=== PATIENT | female | born 1990 | race Hispanic/Latino ===

== ENCOUNTER → 2017-12-25 | Day surgery (SDC) | payer OTHER ==
[~2017-12-25] MED LIST: ALPRAZOLAM1 MG PO; BENTYL10 MG PO; DEXILANT60 MG PO; DOMPERIDONE PO; FENTANYL CITRATE/PF 100MCG/2 ML INJ ONE; LIDOCAINE HCL 2% LOCAL INJ 5 ML SDV VIAL INJ ONE; MIDAZOLAM HCL 2 MG/2 ML VIAL ONE; PANTOPRAZOLE SO40 MG PO; PROPOFOL IV EMULSION 10 MG/ML 50 ML VIAL ONE
--- NOTE | 2017-12-25 18:37 | Operative Report ---
DATE OF PROCEDURE: December 25, 2017 REFERRING PHYSICIAN: Dr. Jordan Potter. PROCEDURE PERFORMED: Esophagogastroduodenoscopy with biopsies and esophageal dilatation. INDICATIONS FOR ESOPHAGOGASTRODUODENOSCOPY: Dysphagia. Upper abdominal pain. Nausea. MEDICATION: Patient was done under MAC. Please see anesthesiologist's note. PROCEDURE: With patient in the left lateral decubitus position, flexible fiberoptic Olympus gastroscope was introduced into the esophagus under direct visualization without any difficulty. There was some patchy erythema noted in distal esophagus. There was a mild stricture noted at the GE junction that was dilated to size 52-Bangladeshi Mckinney. The scope was then advanced with ease into the stomach. Mucosa overlying the antrum and the body revealed some patchy erythema and low-grade to moderate edema and biopsies were obtained and sent to stain for H. pylori. Pylorus was of normal contour and shape. Was intubated with ease and the scope was advanced all the way to the 2nd portion of the duodenum. The scope was then withdrawn slowly. Mucosa overlying the proximal 2nd portion and the duodenal bulb appeared to be within normal limits. The scope was then withdrawn back into the stomach and retroflexed and the mucosa overlying the fundus and the cardia appeared to be within normal limits. The scope was then straightened out, and the scope was subsequently withdrawn. Patient tolerated the procedure well. A minute hyperplastic appearing polyp was noted in the body of the stomach and that was partially excised with cold biopsy forceps. The scope was subsequently withdrawn. Patient tolerated procedure well. IMPRESSION: 1. Distal esophagitis. 2. Esophageal stricture at gastroesophageal junction dilated to size 52-Bangladeshi Mckinney. 3. Gastritis biopsied. Biopsy sent to stain for H. pylori. 4. Gastric polyp body partially excised with cold biopsy forceps. PLAN: Follow up histology. Continue Dexilant 60 mg one p.o. q.a.m. a.c. Add Carafate 2 grams p.o. a.c. b.i.d. Job#: [id number] GH cc:JORDAN POTTER MD
== END | disposition home or self-care (01) ==
LOC: OR 12:00
PROVIDERS: ATTEND Internal Medicine Gastroenterology
DX: K22.2 Esophageal obstruction (principal); K31.7 Polyp of stomach and duodenum; K29.70 Gastritis, unspecified, without bleeding; K20.9 Esophagitis, unspecified; K21.9 Gastro-esophageal reflux disease without esophagitis; N20.0 Calculus of kidney; F41.9 Anxiety disorder, unspecified
CPT/HCPCS: 43239; 43450; 81025; J2001; J2250

== ENCOUNTER → 2018-10-12 | Day surgery (SDC) | payer OTHER ==
[~2018-10-12] MED LIST changes: +AMBIEN5 MG PO; +LEXAPRO10 MG PO; +LISINOPRIL10 MG PO
--- OUTSIDE RECORDS SUMMARY | 2018-10-12 08:22 | XMS REPORT | Summary of Care ---
Author Author [facility] Organization [facility] Address Unknown Phone Unavailable Encounter DINORA Garrett(FIN) [id number] Date(s): 08/19/18 - 08/19/18 [facility] [address] [place] [address]- [phone] Discharge Disposition: Home or Self Care Attending Physician: Karen Awan MD Vital Signs Most recent to 1 oldest [Reference Range]: Height 162.56 cm (08/19/18 11:18 AM) Temperature Oral 98.1 DegF [96.4-99.1 DegF] (08/19/18 11:18 AM) Blood Pressure 142/97 mmHg [90-140/60-90 mmHg] *HI* (08/19/18 11:18 AM) Peripheral Pulse 107 bpm Rate [60-100 bpm] *HI* (08/19/18 11:18 AM) Weight 67.983 kg (08/19/18 11:18 AM) Body Mass Index 25.73 m2 (08/19/18 11:18 AM) Problem List Condition Effective Dates Status Health Status Informant Anxiety(Confirmed) Active Overactive Active bladder(Confirmed) GERD Active (gastroesophageal reflux disease)(Confirmed) Allergies, Adverse Reactions, Alerts Substance Reaction Severity Status Reglan Active Medications escitalopram 20 mg oral tablet 20 mg=1 tab, PO, Daily, # 30 tab, 0 Refill(s), Pharmacy: [facility] 133 Start Date: 08/19/18 Status: Ordered Results No data available for this section Immunizations No data available for this section Procedures Procedure Date Related Diagnosis Body Site Status Papanicolaou smear taken2015 Completed Cholecystectomy Completed Extraction of wisdom tooth Completed 1normal pap per patient Social History Social History Type Response Substance Abuse Use: None. Sexual Sexual orientation: Lesbian, templeton or homosexual. Employment/School Status: Employed. Alcohol Current, Type Wine. Frequency: 1-2 times per month. Smoking Status Never smoker; Exposure to Tobacco Smoke None; Cigarette Smoking Last 365 Days No; Reg Smoking Cessation Counseling No entered on: 08/19/18 Assessment and Plan No data available for this section
--- OUTSIDE RECORDS SUMMARY | 2018-10-12 08:22 | XMS REPORT | Continuity of Care Document ---
Author Author Maria Del Rosario eaton Organization Interface Address Unknown Phone Unavailable Problems Problem Status Onset Date Classification Date Reported Comments Source R94.5 - ABNORMAL RESULTS OF LIVER FUNC Active 08/12/2018 [facility] Anxiety Active Problem 09/18/2018 [facility] Overactive bladder Active Problem 09/18/2018 [facility] GERD (<span ID="[id number]">Confirmed</span>) Active Problem 09/18/2018 [facility] Medications Medication Details Route Status Patient Instructions Ordering Provider Order Date Source lisinopril 10 mg oral tablet 10 mg=1 tab, PO, Daily, # 30 tab, 0 Refill(s), Pharmacy: [facility] [id number] Active 09/16/2018 [facility] Zolpidem tartrate 5 MG Oral Tablet [Ambien] 5 mg=1 tab, PO, Bedtime, PRN for sleep, X 30 day, # 30 tab, 0 Refill(s) Active 09/16/2018 [facility] Alprazolam 1 MG Oral Tablet 1 mg=1 tab, PO, Daily, as needed for anxiety attack, X 30 day, # 30 tab, 0 Refill(s) Active 09/16/2018 [facility] escitalopram 20 mg oral tablet 20 mg=1 tab, PO, Daily, # 30 tab, 1 Refill(s), Pharmacy: [facility] [id number] Active 09/16/2018 [facility] dexlansoprazole 60 MG Enteric Coated Capsule [Dexilant] 60 mg=1 cap, PO, Daily, # 90 cap, 1 Refill(s), Pharmacy: [facility] [id number] Active 08/29/2018 [facility] escitalopram 20 mg oral tablet 20 mg=1 tab, PO, Daily, # 30 tab, 0 Refill(s), Pharmacy: [facility] [id number] Active 08/19/2018 [facility] escitalopram 10 mg oral tablet =1 tab, PO, Daily, # 30 tab, Pharmacy: [facility] [id number] Active 08/12/2018 [facility] Allergies, Adverse Reactions, Alerts Substance Category Reaction Severity Reaction type Status Date Reported Comments Source Reglan Assertion Drug allergy Active [facility] Immunizations Immunization Date Given Site Status Last Updated Comments Source Results Order Name Results Value Reference Range Date Interpretation Comments Source Abdomen RUQ US Abdomen RUQ US Procedure: Right Upper Quadrant Ultrasound. Clinical Indication: Abnormal laboratory values. Comparison: None. TECHNIQUE: Grayscale and limited color sonographic evaluation of the right upper quadrant of the abdomen and gallbladder region was performed with standard technique. FINDINGS: LIVER: The liver demonstrates minimal increased echogenicity suggesting fatty infiltration. The main portal vein appears patent and demonstrates hepatopetal flow. BILE DUCTS: The intrahepatic and extrahepatic bile ducts are not dilated with the common bile duct measuring 6 mm. GALLBLADDER: The patient has had previous cholecystectomy. PANCREAS: The pancreas was not well-seen secondary to overlying bowel gas. RIGHT KIDNEY: The right kidney measures 11.2 cm. There is normal renal contour and morphology, with normal parenchymal echotexture. There is no hydronephrosis. AORTA AND INFERIOR VENA CAVA: Visualized portions appear unremarkable. ADDITIONAL COMMENTS: None IMPRESSION: 1. Findings suggesting fatty infiltration of the liver. 2. Previous cholecystectomy. [id number] 08/15/2018 - - Read by: Luis Fermin MD Dictated Date/time: 08/15/18 13:20 Electronically Signed by: Luis Fermin MD 08/15/18 13:23 FINAL REPORT [facility] Vital Signs Vital Sign Value Date Comments Source Heart Rate 109 09/16/2018 [facility] Respitory Rate 16 09/16/2018 [facility] BMI Calculated 25.65 09/16/2018 [facility] Height 162.56 cm 09/16/2018 [facility] Weight 67.784 09/16/2018 [facility] Temperature Oral (F) 98.1 F 09/16/2018 [facility] Systolic (mm Hg) 140 09/16/2018 [facility] Diastolic (mm Hg) 104 09/16/2018 [facility] Height 162.56 cm 08/19/2018 [facility] Heart Rate 107 08/19/2018 [facility] Temperature Oral (F) 98.1 F 08/19/2018 [facility] Weight 67.983 08/19/2018 [facility] BMI Calculated 25.73 08/19/2018 [facility] Systolic (mm Hg) 142 08/19/2018 [facility] Diastolic (mm Hg) 97 08/19/2018 [facility] Encounters Location Location Details Encounter Type Encounter Number Reason For Visit Attending Provider ADM Date DC Date Status Source Outpatient [id number] ZOEY ALVES 07/08/2018 Active [facility] Outpatient [id number] ZOEY ALVES 07/15/2018 [facility] [place] Phone Message [id number] 08/11/2018 08/13/2018 [facility] Outpatient [id number] ZOEY ALVES 08/19/2018 Active [facility] [place] Outpatient [id number] Zoey Alves 08/19/2018 08/20/2018 [facility] [place] Phone Message [id number] 08/29/2018 08/31/2018 [facility] Outpatient [id number] ZOEY ALVES 09/16/2018 Active [facility] [place] Outpatient [id number] Zoey Alves 09/16/2018 09/17/2018 [facility] Outpatient [id number] ZOEY ALVES 10/21/2018 [facility] Procedures Procedure Code Date Perfomer Comments Source Papanicolaou smear taken<sup>1</sup> [id number] 07/05/2015 normal pap per patient [facility] Cholecystectomy [id number] [facility] Extraction of wisdom tooth [id number] [facility]
--- OUTSIDE RECORDS SUMMARY | 2018-10-12 08:22 | XMS REPORT | Summary of Care ---
Author Author [facility] Address Unknown Phone Unavailable Encounter DINORA Garrett(FIN) [id number] Date(s): 09/16/18 - 09/16/18 [facility] [address] [place] [phone] Discharge Disposition: Home or Self Care Attending Physician: Karen Awan MD Vital Signs Most recent to 1 oldest [Reference Range]: Height 162.56 cm (09/16/18 11:16 AM) Temperature Oral 98.1 DegF [96.4-99.1 DegF] (09/16/18 11:16 AM) Blood Pressure 140/104 mmHg [90-140/60-90 mmHg] (09/16/18 11:16 AM) Respiratory Rate 16 BRMIN [14-20 BRMIN] (09/16/18 11:16 AM) Peripheral Pulse 109 bpm Rate [60-100 bpm] *HI* (09/16/18 11:16 AM) Weight 67.784 kg (09/16/18 11:16 AM) Body Mass Index 25.65 m2 (09/16/18 11:16 AM) Problem List Condition Effective Dates Status Health Status Informant Anxiety(Confirmed) Active Overactive Active bladder(Confirmed) GERD Active (gastroesophageal reflux disease)(Confirmed) Allergies, Adverse Reactions, Alerts Substance Reaction Severity Status Reglan Active Medications ALPRAZOLam 1 mg oral tablet 1 mg=1 tab, PO, Daily, as needed for anxiety attack, X 30 day, # 30 tab, 0 Refil l(s) Start Date: 09/16/18 Stop Date: 10/16/18 Status: Ordered Ambien 5 mg oral tablet 5 mg=1 tab, PO, Bedtime, PRN for sleep, X 30 day, # 30 tab, 0 Refill(s) Start Date: 09/16/18 Stop Date: 10/16/18 Status: Ordered escitalopram 20 mg oral tablet 20 mg=1 tab, PO, Daily, # 30 tab, 1 Refill(s), Pharmacy: [facility] Start Date: 09/16/18 Status: Ordered lisinopril 10 mg oral tablet 10 mg=1 tab, PO, Daily, # 30 tab, 0 Refill(s), Pharmacy: [facility] 133 Start Date: 09/16/18 Status: Ordered Results No data available for this section Immunizations No data available for this section Procedures Procedure Date Related Diagnosis Body Site Status Papanicolaou smear taken1 2015 Completed Cholecystectomy Completed Extraction of wisdom tooth Completed 1normal pap per patient Social History Social History Type Response Substance Abuse Use: None. Sexual Sexual orientation: Lesbian, templeton or homosexual. Employment/School Status: Employed. Alcohol Current, Type Wine. Frequency: 1-2 times per month. Smoking Status Never smoker; Exposure to Tobacco Smoke None; Cigarette Smoking Last 365 Days No; Reg Smoking Cessation Counseling No entered on: 09/16/18 Assessment and Plan No data available for this section
--- OUTSIDE RECORDS SUMMARY | 2018-10-12 08:22 | XMS REPORT | Summary of Care ---
Author Author [facility] Address Unknown Phone Unavailable Encounter HQ Chelita_janet(FIN) [id number] Date(s): 08/11/18 - 08/12/18 [facility] [address] [place] [phone] Vital Signs No data available for this section Problem List Condition Effective Dates Status Health Status Informant Anxiety(Confirmed) Active Overactive Active bladder(Confirmed) GERD Active (gastroesophageal reflux disease)(Confirmed) Allergies, Adverse Reactions, Alerts Substance Reaction Severity Status Reglan Active Medications escitalopram 10 mg oral tablet =1 tab, PO, Daily, # 30 tab, Pharmacy: [facility] [id number] Start Date: 08/12/18 Status: Ordered Results No data available for [...] Reg Smoking Cessation Counseling No entered on: 07/15/18 Assessment and Plan No data available for this section
--- OUTSIDE RECORDS SUMMARY | 2018-10-12 08:22 | XMS REPORT | Summary of Care ---
Author Author [facility] Address Unknown Phone Unavailable Encounter DINORA Garrett(FIN) [id number] Date(s): 08/29/18 - 08/30/18 [facility] [address] [place] [address] [phone] Vital Signs No data available for this section Problem List Condition Effective Dates Status Health Status Informant Anxiety(Confirmed) Active Overactive Active bladder(Confirmed) GERD Active (gastroesophageal reflux disease)(Confirmed) Allergies, Adverse Reactions, Alerts Substance Reaction Severity Status Reglan Active Medications Dexilant 60 mg oral delayed release capsule 60 mg=1 cap, PO, Daily, # 90 cap, 1 Refill(s), Pharmacy: [email or web address] 04 133 Start Date: 08/29/18 Status: Ordered Results No data available for [...]
[2018-10-12 13:45] VITALS: BP 123/83
--- NOTE | 2018-10-12 14:05 | Operative Report ---
DATE OF PROCEDURE: 10/12/2018 SURGEON: Leo Leyva MD PROCEDURE: Esophagogastroduodenoscopy with esophageal dilatation and biopsies. INDICATIONS FOR EGD: Dysphagia, nausea. MEDICATIONS: The patient was done under MAC, please see anesthesiologist's note. PROCEDURE IN DETAIL: With the patient in left lateral decubitus position, the flexible fiberoptic Olympus gastroscope was introduced into the esophagus under direct visualization without any difficulty. There was some patchy erythema noted in distal esophagus. A mild stricture was noted at the GE junction that was dilated to size 52-[place]jib[place] Mckinney. The scope was then advanced with ease into the stomach. Mucosa overlying the antrum and the body revealed some patchy erythema and istp-xb-gkzlplih edema and biopsies were obtained and sent to stain for H pylori. Several hyperplastic-appearing polyps were noted in the body and the fundus of the stomach, some were partially excised with cold biopsy forceps. The pylorus was of normal contour and shape, it was intubated with ease and the scope was advanced all the way to the second portion of the duodenum. The scope was then withdrawn slowly, mucosa overlying the proximal second portion and duodenal bulb grossly appeared to be within normal limits. Biopsies were obtained to rule out sprue. The scope was then withdrawn back into the stomach and retroflexed and mucosa overlying the fundus and the cardia appeared to be within normal limits. The scope was then straightened out, it was subsequently withdrawn. The patient tolerated the procedure well. IMPRESSION: 1. Distal esophagitis, mild. 2. Esophageal stricture at GE junction, dilated to size 52-Djibout[place] Mckinney. 3. Gastritis, biopsied. Biopsies sent to stain for Helicobacter pylori. 4. Gastric polyps, hyperplastic appearing, some partially excised with the cold biopsy forceps. 5. Rule out sprue. PLAN: Follow up histology. Continue Dexilant 60 mg one p.o. a.c. q.a.m. Add Carafate 1 g p.o. a.c. t.i.d. and at bedtime. Leo Leyva MD [facility]TL /[id number] cc: Karen Awan MD
== END | disposition home or self-care (01) ==
LOC: OR 08:19
PROVIDERS: ATTEND Internal Medicine Gastroenterology
DX: K22.2 Esophageal obstruction (principal); K31.7 Polyp of stomach and duodenum; K29.70 Gastritis, unspecified, without bleeding; K21.0 Gastro-esophageal reflux disease with esophagitis; I10 Essential (primary) hypertension; F41.9 Anxiety disorder, unspecified; Z88.8 Allergy status to other drugs, medicaments and biological substances; Z68.25 Body mass index [BMI] 25.0-25.9, adult
CPT/HCPCS: 43239; 43450; 81025; 93005; J2001; J2250; J2704

== ENCOUNTER → 2018-12-27 | Day surgery (SDC) | payer OTHER ==
[~2018-12-27] MED LIST changes: +HYOSCYAMINE 0.125 MG TAB ONE; -LIDOCAINE HCL 2% LOCAL INJ 5 ML SDV VIAL INJ ONE; -MIDAZOLAM HCL 2 MG/2 ML VIAL ONE; +MIDAZOLAM HCL 5MG/ML 2ML VIAL ONE
--- OUTSIDE RECORDS SUMMARY | 2018-12-27 10:34 | XMS REPORT | Continuity of Care Document ---
Author Author Maria Del Rosario eaton [facility] Interface Address Unknown Phone Unavailable Problems Problem Status Onset Date Classification Date Reported Comments Source 1ST NIGHT - [address] Active 11/02/2018 [facility] R94.5 - ABNORMAL RESULTS OF LIVER FUNC Active 08/12/2018 [facility] Anxiety Active Problem 12/07/2018 [facility] Overactive bladder Active Problem 12/07/2018 [facility] GERD (<span ID="[id number]">Confirmed</span>) Active Problem 12/07/2018 [facility] Benign hypertension Active Problem 12/07/2018 [facility] Chronic fatigue Active Problem 12/07/2018 [facility] Insomnia Active Problem 12/07/2018 [facility] Subclinical hypothyroidism Active Problem 12/07/2018 [facility] Medications Medication Details Route Status Patient Instructions Ordering Provider Order Date Source 12 HR Bupropion Hydrochloride 150 MG Extended Release Tablet [Wellbutrin] 150 mg=1 tab, PO, BID, # 60 tab, 0 Refill(s), Pharmacy: [facility] [address] Active 12/02/2018 [facility] Ondansetron 8 MG Oral Tablet [Zofran] 8 mg=1 tab, PO, Daily, # 10 tab, 0 Refill(s) Active 12/02/2018 [facility] sucralfate 1 g oral tablet 2 gm=2 tab, PO, BID, # 240 tab, 0 Refill(s) Active 10/21/2018 [facility] lisinopril 10 mg oral tablet 10 mg=1 tab, PO, Daily, # 30 tab, 0 Refill(s), Pharmacy: [facility] [address] Active 09/16/2018 [facility] Zolpidem tartrate 5 MG Oral Tablet [Ambien] 5 mg=1 tab, PO, Bedtime, PRN for sleep, X 30 day, # 30 tab, 0 Refill(s) Active 09/16/2018 [facility] Alprazolam 1 MG Oral Tablet 1 mg=1 tab, PO, Daily, as needed for anxiety attack, X 30 day, # 30 tab, 0 Refill(s) Active 09/16/2018 [facility] escitalopram 20 mg oral tablet 20 mg=1 tab, PO, Daily, # 30 tab, 1 Refill(s), Pharmacy: [facility] [address] Active 09/16/2018 [facility] dexlansoprazole 60 MG Enteric Coated Capsule [Dexilant] 60 mg=1 cap, PO, Daily, # 90 cap, 1 Refill(s), Pharmacy: [facility] [address] Active 08/29/2018 [facility] escitalopram 20 mg oral tablet 20 mg=1 tab, PO, Daily, # 30 tab, 0 Refill(s), Pharmacy: [facility] [address] Active 08/19/2018 [facility] escitalopram 10 mg oral tablet =1 tab, PO, Daily, # 30 tab, Pharmacy: [facility] [address] Active 08/12/2018 [facility] Allergies, Adverse Reactions, Alerts Substance Category Reaction Severity Reaction type Status Date Reported Comments Source Reglan Assertion Drug allergy Active [facility] Immunizations Immunization Date Given Site Status Last [...] infiltration of the liver. 2. Previous cholecystectomy. [id number] 08/15/2018 - - Read by: Luis Fermin MD Dictated Date/time: 08/15/18 13:20 Electronically Signed by: Luis Fermin MD 08/15/18 13:23 FINAL REPORT [facility] Vital Signs Vital Sign Value Date Comments Source BMI Calculated 25.84 12/02/2018 [facility] Weight 68.295 12/02/2018 [facility] Height 162.56 cm 12/02/2018 [facility] Systolic (mm Hg) 134 12/02/2018 [facility] Diastolic (mm Hg) 96 12/02/2018 [facility] Heart Rate 104 12/02/2018 [facility] BMI Calculated 25.86 10/21/2018 [facility] Weight 68.324 10/21/2018 [facility] Heart Rate 93 10/21/2018 [facility] Temperature Oral (F) 98.0 F 10/21/2018 [facility] Height 162.56 cm 10/21/2018 [facility] Systolic (mm Hg) 130 10/21/2018 [facility] Diastolic (mm Hg) 90 10/21/2018 [facility] Heart Rate 109 09/16/2018 [facility] Respitory [...] Group Diastolic (mm Hg) 97 08/19/2018 [facility] Encounters Location Location Details Encounter Type Encounter Number Reason For Visit Attending Provider ADM Date DC Date Status Source Outpatient [id number] ZOEY ALVES 07/08/2018 Active [facility] Outpatient [id number] ZOEY ALVES 07/15/2018 Active [facility] Phone Message [id number] 08/11/2018 08/13/2018 [facility] Outpatient [id number] ZOEY ALVES 08/19/2018 Active [facility] [place] Outpatient [id number] Zoey Alves 08/19/2018 08/20/2018 [facility] [place] Phone Message [id number] 08/29/2018 08/31/2018 [facility] Outpatient [id number] ZOEY ALVES 09/16/2018 [facility] [place] Outpatient [id number] Zoey Alves 09/16/2018 09/17/2018 [facility] Outpatient [id number] Zoey Alves 10/21/2018 Active [facility] [place] Outpatient [id number] Zoey Alves 10/21/2018 10/22/2018 [facility] [place] Between Visit [id number] 11/03/2018 11/04/2018 [facility] Outpatient [id number] Zoey Alves 12/02/2018 [facility] [place] Outpatient [id number] Zoey Alves 12/02/2018 12/03/2018 [facility] [place] Between Visit [id number] 12/04/2018 12/05/2018 [facility] [place] Between Visit [id number] 12/04/2018 12/05/2018 [facility] Outpatient [id number] Zoey Alves 01/02/2019 Active [facility] Procedures Procedure Code Date Perfomer Comments Source Papanicolaou smear taken<sup>1</sup> [id number] 07/05/2015 normal pap per patient [facility] Cholecystectomy [id number] [facility] Extraction of wisdom tooth [id number] [facility]
--- OUTSIDE RECORDS SUMMARY | 2018-12-27 10:35 | XMS REPORT | Summary of Care ---
Author Author [facility] Organization [facility] Address Unknown Phone Unavailable Care Team Providers Care Nurse Assessor Name Role Phone Karen Awan PCP Encounter HQ Encntr_alias(FIN) [id number] Date(s): 12/04/18 - 12/05/18 [facility] [address] [place] [address]- [phone] Vital Signs No data available for this section Problem List Condition Effective Dates Status Health Status Informant Anxiety(Confirmed) Active Benign Active hypertension(Confirm ed) Overactive Active bladder(Confirmed) Chronic Active fatigue(Confirmed) GERD Active (gastroesophageal reflux disease)(Confirmed) Insomnia(Confirmed) Active Subclinical Active hypothyroidism(Confi rmed) Allergies, Adverse Reactions, Alerts Substance Reaction Severity Status Reglan Active Medications No data available for this section Results No data available for this section [...] Reg Smoking Cessation Counseling No entered on: 12/02/18 Assessment and Plan No data available for this section
--- OUTSIDE RECORDS SUMMARY | 2018-12-27 10:35 | XMS REPORT | Summary of Care ---
Author Author [facility] Address Unknown Phone Unavailable Encounter DINORA Garrett(FIN) [id number] Date(s): 10/21/18 - 10/21/18 [facility] [address] [place] [address]- [phone] Discharge Disposition: Home or Self Care Attending Physician: Karen Awan MD Vital Signs Most recent to 1 oldest [Reference Range]: Height 162.56 cm (10/21/18 11:27 AM) Temperature Oral 98.0 DegF [96.4-99.1 DegF] (10/21/18 11:27 AM) Blood Pressure 130/90 mmHg [90-140/60-90 mmHg] (10/21/18 11:27 AM) Peripheral Pulse 93 bpm Rate [60-100 bpm] (10/21/18 11:27 AM) Weight 68.324 kg (10/21/18 11:27 AM) Body Mass Index 25.86 m2 (10/21/18 11:27 AM) Problem List Condition Effective Dates Status Health Status Informant Anxiety(Confirmed) Active Benign Active hypertension(Confirm ed) Overactive Active bladder(Confirmed) GERD Active (gastroesophageal reflux disease)(Confirmed) Insomnia(Confirmed) Active Subclinical Active hypothyroidism(Confi rmed) Allergies, Adverse Reactions, Alerts Substance Reaction Severity Status Reglan Active Medications sucralfate 1 g oral tablet 2 gm=2 tab, PO, BID, # 240 tab, 0 Refill(s) Start Date: 10/21/18 Status: Ordered Results No data available for [...] Reg Smoking Cessation Counseling No entered on: 10/21/18 Assessment and Plan No data available for this section
--- OUTSIDE RECORDS SUMMARY | 2018-12-27 10:35 | XMS REPORT | Summary of Care ---
Author Author [facility] Address Unknown Phone Unavailable Encounter HQ Timothyntr_janet(FIN) [id number] Date(s): 11/03/18 - 11/04/18 [facility] [address] [facility] [address] [place] [address]- [phone] Vital Signs No data available for this [...]
--- OUTSIDE RECORDS SUMMARY | 2018-12-27 10:35 | XMS REPORT ---
Author Author [facility] Address Unknown Phone Unavailable Care Team Providers Care Cinder Man Name Role Phone Unavailable Unavailable Problems This patient has no known problems. Allergies, Adverse Reactions, Alerts This patient has no known allergies or adverse reactions. Medications This patient has no known medications. Encounters Start Date/Time End Date/Time Encounter Type Admission Type Attending Clinicians Care Facility Care Department Encounter ID 2018-11-03 16:16:00 Outpatient [facility] [id number]
--- OUTSIDE RECORDS SUMMARY | 2018-12-27 10:35 | XMS REPORT | Summary of Care ---
Author Author [facility] Organization [facility] Address Unknown Phone Unavailable Care Team Providers Care Home Health Travel Pt Name Role Phone Karen Awan PCP Encounter [facility] Encntr_alias(FIN) [id number] Date(s): 12/04/18 - 12/05/18 [facility] [address] [place] [address]- [phone] Vital Signs No data available for this [...]
--- OUTSIDE RECORDS SUMMARY | 2018-12-27 10:35 | XMS REPORT | Summary of Care ---
Author Author [facility] Organization [facility] Address Unknown Phone Unavailable Care Team Providers Care Rehab Trainer Name Role Phone Karen Awan PCP Encounter [facility] Yvesr_janet(FIN) [id number] Date(s): 12/02/18 - 12/02/18 [facility] [address] [place] [address]- [phone] Discharge Disposition: Home or Self Care Attending Physician: Karen Awan MD Vital Signs Most recent to 1 oldest [Reference Range]: Height 162.56 cm (12/02/18 11:36 AM) Blood Pressure 134/96 mmHg [90-140/60-90 mmHg] (12/02/18 11:36 AM) Peripheral Pulse 104 bpm Rate [60-100 bpm] *HI* (12/02/18 11:36 AM) Weight 68.295 kg (12/02/18 11:36 AM) Body Mass Index 25.84 m2 (12/02/18 11:36 AM) Problem List Condition Effective Dates Status Health Status Informant Anxiety(Confirmed) Active Benign Active hypertension(Confirm ed) Overactive Active bladder(Confirmed) Chronic Active fatigue(Confirmed) GERD Active (gastroesophageal reflux disease)(Confirmed) Insomnia(Confirmed) Active Subclinical Active hypothyroidism(Confi rmed) Allergies, Adverse Reactions, Alerts Substance Reaction Severity Status Reglan Active Medications Wellbutrin SR 150 mg/12 hours oral tablet, extended release 150 mg=1 tab, PO, BID, # 60 tab, 0 Refill(s), Pharmacy: [id number] Start Date: 12/02/18 Status: Ordered Zofran 8 mg oral tablet 8 mg=1 tab, PO, Daily, # 10 tab, 0 Refill(s) Start Date: 12/02/18 Status: Ordered Results No data available for [...]
[2018-12-27 13:56] VITALS: BP 119/88
[2018-12-27 18:23] LABS: WBC,FECAL (FECAL LACTOFERRIN) NEGATIVE (NEGATIVE)
--- NOTE | 2018-12-27 20:29 | Operative Report ---
DATE OF PROCEDURE: 12/27/2018 SURGEON: Leo Leyva MD PROCEDURE: Colonoscopy with biopsies. INDICATIONS FOR COLONOSCOPY: Chronic diarrhea and history of bright red blood per rectum. MEDICATIONS: The patient was done under MAC, please see anesthesiologist's note. PROCEDURE IN DETAIL: With the patient in left lateral decubitus position, the flexible fiberoptic Olympus colonoscope was inserted into the rectum with ease and advanced all the way to the cecum. Mucosa overlying the cecum appeared to be within normal limits. The ileocecal valve was intubated and the scope was advanced into the terminal ileum. Biopsies were obtained. The scope was then withdrawn back into the colon. It was then withdrawn slowly. Mucosa overlying the ascending and transverse appeared to be within normal limits. Mucosa overlying the descending sigmoid and rectum revealed some patchy mild inflammatory changes. Multiple random biopsies were obtained. The scope was then retroflexed into the distal rectum and small internal hemorrhoids were noted, none of which was actively bleeding. The scope was then straightened out and was subsequently withdrawn after securing an adequate stool specimen that was sent for the appropriate stool studies. The patient tolerated the procedure well. IMPRESSION: 1. Patchy mild left-sided colitis. 2. Proctitis, mild. 3. Internal hemorrhoids, none actively bleeding. PLAN: Follow up histology. Follow up stool studies. Start Colestid 1 g p.o. b.i.d. and Bentyl 10 mg 1 p.o. t.i.d. Check IBD panel, CRP and sedimentation rate. Leo Leyva MD [facility] /[id number] cc: Karen Awan MD
[2018-12-28 13:00] LABS: C DIFFICILE TOXIN A&B AMP PROB NEGATIVE (NEGATIVE)
== END | disposition home or self-care (01) ==
LOC: OR 10:15
PROVIDERS: ATTEND Internal Medicine Gastroenterology
DX: D12.8 Benign neoplasm of rectum (principal); K51.50 Left sided colitis without complications; K62.89 Other specified diseases of anus and rectum; K64.8 Other hemorrhoids; R19.7 Diarrhea, unspecified; K21.9 Gastro-esophageal reflux disease without esophagitis; Z87.442 Personal history of urinary calculi; F41.9 Anxiety disorder, unspecified; Z88.8 Allergy status to other drugs, medicaments and biological substances; Z01.810 Encounter for preprocedural cardiovascular examination; K62.5 Hemorrhage of anus and rectum; R11.0 Nausea; Z68.26 Body mass index [BMI] 26.0-26.9, adult; I10 Essential (primary) hypertension
CPT/HCPCS: 36415; 45380; 81025; 83630; 83993; 85651; 86140; 86256; 86671; 87045; 87177; 87328; 87493; 93005; J2250; J2704; 45378; J3010